=== PATIENT | male | born 1955 | race Caucasian/White ===

== ENCOUNTER 2020-08-03 11:33 | Emergency (ER) | payer MEDICARE, OTHER ==
[~2020-08-03] VITALS: Ht 177.8 cm; Wt 51.0 kg
[2020-08-03 12:17] VITALS: BP 152/99
--- NOTE | 2020-08-03 12:37 | RAD ---
XR CHEST 1V History: Reason: SYNCOPE / Spl. Instructions: / History: Comparison: None. Findings: Hyperinflation with emphysematous changes. Postop changes right upper lung. No pleural effusion. No p neumothorax. Asymmetric right apical pleural thickening. Impression: 1. Hyperinflation with emphysematous changes. Electronically signed by: Corby Cordon DO (08/03/2020 12:35 PM) [id number]
--- NOTE | 2020-08-03 12:49 | RAD ---
Exam performed: CT scan of the head and cervical spine without contrast. Date of Service: 08/03/2020 Comparison:None available Clinical History: Patient fell this morning and hit forehead on the door knob, complaining of headach e and neck pain Technique: Helical acquisitions are obtained from the foramen magnum to the vertex without intravenou s administration of contrast. In addition helical acquisitions are obtained through the cervical spin e. Sagittal and coronal reformatted images are obtained and reviewed. CT scan head findings: The ventricular system is midline without evidence of dilatation. Normal ornelas-white differentiation is maintained. Mild generalized areas of low-attenuation are seen, predominantly in the right pariet o-occipital region. There is no extra axial fluid collection, intraparenchymal hemorrhage or mass les ion. The visualized orbits, paranasal sinuses and the mastoid air cells are clear. The calvarium is intact. Impression: 1. No acute intracranial process detected. 2. Areas of low-attenuation in both periventricular deep white matter predominantly in the right carmella eto-occipital region may represent small vessel ischemic changes. If indicated evaluation with MRI of the brain may be obtained to rule out possibility of a cerebrovascular accident. End Impression. CT cervical spine findings: There is minimal grade 1 retrolisthesis of C3 over C4 and grade 1 anterolisthesis of C4 over C5, the remainder sagittal alignment is preserved. Cranio cervical and C1-2 articulation is preserved. The ve rtebral body heights are maintained. There is narrowing of C3/4, C5/6 and C6/7 disc spaces, the remai nder intravertebral disc spaces are maintained. Multilevel bilateral apophyseal joint hypertrophic ch anges are seen. There are no fractures. No prevertebral soft tissue swelling is identified. No def inite lymphadenopathy or masses are seen within the neck. The visualized thyroid and salivary glands appears preserved. Impression: 1. Spondylotic changes and mild disc degenerative changes are noted. 2. No acute abnormality seen in the CT scan cervical spine. PQRS Compliance Statement: One or more of the following individualized dose reduction techniques were utilized for this examinat ion: 1. Automated exposure control 2. Adjustment of the mA and/or kV according to patient size 3. Use of iterative reconstruction technique Electronically signed by: Patricia Costa MD (08/03/2020 12:46 PM) [facility] CAMPUSAdriana
[2020-08-03 13:46] LABS: BASO # 0.1 x10^3/uL (0.0-0.2); BASO % 1 % (0-3); EOS # 0.1 x10^3/uL (0.0-0.7); EOS % 1 % (0-3); HEMATOCRIT 36.1 % (39.0-53.0); LYMPH # 2.4 x10^3/uL (1.0-4.8); LYMPH % 24 % (24-48); MEAN CORPUSCULAR HEMOGLOBIN 27 pg (25-35); MEAN CORPUSCULAR HGB CONC 33 g/dL (31-37); MEAN CORPUSCULAR VOLUME 80 fL (79-100); MONO # 0.6 x10^3/uL (0.0-1.1); MONO % 6 % (0-9); NEUT # 6.6 x10^3/uL (1.8-7.7); NEUT % 68 % (31-73); PLATELET COUNT 335 x10^3/uL (140-400); RED BLOOD COUNT 4.48 x10^6/uL (4.30-5.70); RED CELL DISTRIBUTION WIDTH 16.2 % (11.5-14.5); WHITE BLOOD COUNT 9.8 x10^3/uL (4.0-11.0)
[2020-08-03 13:47] LABS: CALCIUM 9.3 mg/dL (8.5-10.1); CREATININE 1.1 mg/dL (0.7-1.3); GFR 67.2; POTASSIUM 4.4 mmol/L (3.5-5.1)
[2020-08-03 13:52] LABS: ALBUMIN 2.7 g/dL (3.4-5.0); ALBUMIN/GLOBULIN RATIO 0.6 (1.0-1.7); MAGNESIUM 2.1 mg/dL (1.8-2.4); TOTAL BILIRUBIN 0.3 mg/dL (0.2-1.0); TOTAL PROTEIN 7.6 g/dL (6.4-8.2)
[2020-08-03 14:24] LABS: BILIRUBIN,URINE NEGATIVE (NEG); CLARITY,URINE CLEAR; COLOR,URINE YELLOW; NITRITE,URINE NEGATIVE (NEG); PH,URINE 5.5 (<5.0-8.0); PROTEIN,URINE NEGATIVE (NEG-TRACE); UROBILINOGEN,URINE 0.2 mg/dL (0.2 mg/dL)
[2020-08-03 14:35] LABS: BACTERIA,URINE 0 /HPF (0-FEW); RBC,URINE 0 /HPF (0-2); WBC,URINE 0 /HPF (0-4)
--- NOTE | 2020-08-03 15:10 | PHYS DOC ---
Past Medical History Past Medical History: COPD, Hypertension Past Surgical History: Other Additional Past Surgical Histo: RIGHT UPPER LOBE LUNG REMOVAL 11/26 Smoking Status: Current Every Day Smoker Alcohol Use: None General Adult EDM: Chief Complaint: NEURO SYMPTOMS/DEFICITS HPI: HPI: Patient is a 64-year-old male who presented to ER for evaluation of right upper extremity numbness and tingling sensation for 2 weeks. Patient got up this morning, tripped and fell hit his forehead against a doorknob, loss of consciousness. Patient said he had not been feeling well since . Patient denies any chest pain, no abdominal pain, no nausea or vomiting. Patient denies any trouble breathing. Patient has a history of hypertension, COPD. His daughter said he had not been taking his blood pressure medication for a week. Patient has his medication with him but somehow he did forget to take them. Review of Systems: Review of Systems: Constitutional: Denies fever or chills. [] Eyes: Denies change in visual acuity. [] HENT: Denies nasal congestion or sore throat. [] Respiratory: Denies cough or shortness of breath. [] Cardiovascular: Denies chest pain or edema. [] GI: Denies abdominal pain, nausea, vomiting, bloody stools or diarrhea. [] : Denies dysuria. [] Musculoskeletal: Denies back pain or joint pain. [] Integument: Denies rash. [] Neurologic: Positive for headache, focal weakness or sensory changes. [] Positive for some numbness and tingling sensation on the right upper extremity Endocrine: Denies polyuria or polydipsia. [] Lymphatic: Denies swollen glands. [] Psychiatric: Denies depression or anxiety. [] Heart Score: Risk Factors: Risk Factors: DM, Current or recent (<one month) smoker, HTN, HLP, family history of CAD, obesity. Risk Scores: Score 0 - 3: 2.5% MACE over next 6 weeks - Discharge Home Score 4 - 6: 20.3% MACE over next 6 weeks - Admit for Clinical Observation Score 7 - 10: 72.7% MACE over next 6 weeks - Early Invasive Strategies Physical Exam: PE: Constitutional: Well developed, well nourished, no acute distress, non-toxic appearance. [] HENT: Normocephalic, atraumatic, bilateral external ears normal, oropharynx moist, no oral exudates, nose normal. [] Eyes: PERRLA, EOMI, conjunctiva normal, no discharge. [] Neck: Normal range of motion, no tenderness, supple, no stridor. [] Cardiovascular:Heart rate regular rhythm, no murmur [] Lungs & Thorax: Bilateral breath sounds clear to auscultation [] Abdomen: Bowel sounds normal, soft, no tenderness, no masses, no pulsatile mass es. [] Skin: Warm, dry, no erythema, no rash. [] Back: No tenderness, no CVA tenderness. [] Extremities: No tenderness, no cyanosis, no clubbing, ROM intact, no edema. [] Neurologic: Alert and oriented X 3, normal motor function, normal sensory function, no focal deficits noted. [] Psychologic: Affect normal, judgement normal, mood normal. [] Current Patient Data: Labs: Laboratory Tests Test 08/03/20 13:19 08/03/20 14:15 White Blood Count 9.8 x10^3/uL (4.0-11.0) Red Blood Count 4.48 x10^6/uL (4.30-5.70) Hemoglobin 12.0 g/dL (13.0-17.5) L Hematocrit 36.1 % (39.0-53.0) L Mean Corpuscular Volume 80 fL (79-100) Mean Corpuscular Hemoglobin 27 pg (25-35) Mean Corpuscular Hemoglobin Concent 33 g/dL (31-37) Red Cell Distribution Width 16.2 % (11.5-14.5) H Platelet Count 335 x10^3/uL (140-400) Neutrophils (%) (Auto) 68 % (31-73) Lymphocytes (%) (Auto) 24 % (24-48) Monocytes (%) (Auto) 6 % (0-9) Eosinophils (%) (Auto) 1 % (0-3) Basophils (%) (Auto) 1 % (0-3) Neutrophils # (Auto) 6.6 x10^3/uL (1.8-7.7) Lymphocytes # (Auto) 2.4 x10^3/uL (1.0-4.8) Monocytes # (Auto) 0.6 x10^3/uL (0.0-1.1) Eosinophils # (Auto) 0.1 x10^3/uL (0.0-0.7) Basophils # (Auto) 0.1 x10^3/uL (0.0-0.2) Sodium Level 134 mmol/L (136-145) L Potassium Level 4.4 mmol/L (3.5-5.1) Chloride Level 100 mmol/L (98-107) Carbon Dioxide Level 23 mmol/L (21-32) Anion Gap 11 (6-14) Blood Urea Nitrogen 14 mg/dL (8-26) Creatinine 1.1 mg/dL (0.7-1.3) Estimated GFR (Cockcroft-Gault) 67.2 BUN/Creatinine Ratio 13 (6-20) Glucose Level 86 mg/dL (70-99) Calcium Level 9.3 mg/dL (8.5-10.1) Magnesium Level 2.1 mg/dL (1.8-2.4) Total Bilirubin 0.3 mg/dL (0.2-1.0) Aspartate Amino Transferase (AST) 11 U/L (15-37) L Alanine Aminotransferase (ALT) 12 U/L (16-63) L Alkaline Phosphatase 99 U/L (46-116) Troponin I Quantitative < 0.017 ng/mL (0.000-0.055) LG-Ndo-A-Type Natriuretic Peptide 855 pg/mL (0-124) H Total Protein 7.6 g/dL (6.4-8.2) Albumin 2.7 g/dL (3.4-5.0) L Albumin/Globulin Ratio 0.6 (1.0-1.7) L Urine Collection Type Unknown Urine Color Yellow Urine Clarity Clear Urine pH 5.5 (<5.0-8.0) Urine Specific Starks 1.010 (1.000-1.030) Urine Protein Negative mg/dL (NEG-TRACE) Urine Glucose (UA) Negative mg/dL (NEG) Urine Ketones (Stick) Negative mg/dL (NEG) Urine Blood Negative (NEG) Urine Nitrite Negative (NEG) Urine Bilirubin Negative (NEG) Urine Urobilinogen Dipstick 0.2 mg/dL (0.2 mg/dL) Urine Leukocyte Esterase Negative (NEG) Urine RBC 0 /HPF (0-2) Urine WBC 0 /HPF (0-4) Urine Squamous Epithelial Cells Few /LPF Urine Bacteria 0 /HPF (0-FEW) Laboratory Tests 08/03/20 13:19 Laboratory Tests 08/03/20 13:19 Vital Signs: Vital Signs Date Time Temp Pulse Resp B/P (MAP) Pulse Ox O2 Delivery O2 Flow Rate FiO2 08/03/20 12:17 98.7 104 18 152/99 (116) 98 Room Air 98.7 EKG: EKG: EKG was done at 1259, heart rate of 79 bpm, normal sinus rhythm, no ST segment ovation Radiology/Procedures: Radiology/Procedures: [facility] [address] [place] [address] IMAGING REPORT Signed PATIENT: TONI YORK ACCOUNT: [id number] : 1955 LOCATION: ER AGE: 64 SEX: M EXAM STATUS: REG ER ORD. PHYSICIAN: SEE BUNCH DO REASON: FELL THIS MORNING, HIT FOREHEAD ON DOOR KNOB, HEADACHE, NECK PAIN PROCEDURE: CT HEAD AND CERVICAL SPINE WO Exam performed: CT scan of the head and cervical spine without contrast. Date of Service: 08/03/2020 Comparison:None available Clinical History: Patient fell this morning and hit forehead on the door knob, complaining of headache and neck pain Technique: Helical acquisitions are obtained from the foramen magnum to the vertex without intravenous administration of contrast. In addition helical acquisitions are obtained through the cervical spine. Sagittal and coronal reformatted images are obtained and reviewed. CT scan head findings: The ventricular system is midline without evidence of dilatation. Normal ornelas- white differentiation is maintained. Mild generalized areas of low-attenuation are seen, predominantly in the right parieto-occipital region. There is no extra axial fluid collection, intraparenchymal hemorrhage or mass lesion. The visualized orbits, paranasal sinuses and the mastoid air cells are clear. The calvarium is intact. Impression: 1. No acute intracranial process detected. 2. Areas of low-attenuation in both periventricular deep white matter predominantly in the right parieto-occipital region may represent small vessel ischemic changes. If indicated evaluation with MRI of the brain may be obtained to rule out possibility of a cerebrovascular accident. End Impression. CT cervical spine findings: There is minimal grade 1 retrolisthesis of C3 over C4 and grade 1 anterolisthesis of C4 over C5, the remainder sagittal alignment is preserved. Cranio cervical and C1-2 articulation is preserved. The vertebral body heights are maintained. There is narrowing of C3/4, C5/6 and C6/7 disc spaces, the remainder intravertebral disc spaces are maintained. Multilevel bilateral apophyseal joint hypertrophic changes are seen. There are no fractures. No prevertebral soft tissue swelling is identified. No definite lymphadenopathy or masses are seen within the neck. The visualized thyroid and salivary glands appears preserved. Impression: 1. Spondylotic changes and mild disc degenerative changes are noted. 2. No acute abnormality seen in the CT scan cervical spine. PQRS Compliance Statement: One or more of the following individualized dose reduction techniques were utilized for this examination: 1. Automated exposure control 2. Adjustment of the mA and/or kV according to patient size 3. Use of iterative reconstruction technique Electronically signed by: Patricia Costa MD (08/03/2020 12:46 PM) [facility] DICTATED and SIGNED BY: PATRICIA COSTA MD DATE: 08/03/20 [id number] [facility] [address] [place] [address] IMAGING REPORT Signed PATIENT: TONI YORK ACCOUNT: [id number] : 1955 LOCATION: ER AGE: 64 SEX: M EXAM STATUS: REG ER ORD. PHYSICIAN: SEE BUNCH DO REASON: SYNCOPE PROCEDURE: PORTABLE CHEST 1V XR CHEST 1V History: Reason: SYNCOPE / Spl. Instructions: / History: Comparison: None. Findings: Hyperinflation with emphysematous changes. Postop changes right upper lung. No pleural effusion. No pneumothorax. Asymmetric right apical pleural thickening. Impression: 1. Hyperinflation with emphysematous changes. Electronically signed by: Corby Cordon DO (08/03/2020 12:35 PM) [id number] DICTATED and SIGNED BY: CORBY CORDON DO DATE: 08/03/20 [id number] Course & Med Decision Making: Course & Med Decision Making Pertinent Labs and Imaging studies reviewed. (See chart for details) Patient is a 64-year-old male who presented to ER for evaluation of right upper extremity numbness and tingling sensation for 2 weeks. Patient got up this morning, tripped and fell hit his forehead against a doorknob, loss of consciousness. Patient said he had not been feeling well since . Patient denies any chest pain, no abdominal pain, no nausea or vomiting. Patient denies any trouble breathing. Patient has a history of hypertension, COPD. His daughter said he had not been taking his blood pressure medication for a week. Patient has his medication with him but somehow he did forget to take them.. Work-up in the ER include EKG, routine lab work, CT scan of the head and C-spine did not show any acute problem. Patient states sustained a concussion from the fall this morning. The right upper extremity numbness and tingling sensation is probably due to cervical radiculopathy. Patient will need to follow-up with his family physician for outpatient evaluation with MRI of the cervical spine. Patient daughter is here with him, she will make sure that he was taking medication and follow-up with Next week. Jackie Disclaimer: Jackie Disclaimer: This electronic medical record was generated, in whole or in part, using a voice recognition dictation system. Departure Departure Impression: Primary Impression: Concussion Additional Impression: Cervical radiculopathy Disposition: 01 DC HOME SELF CARE/HOMELESS Condition: STABLE Referrals: NO PCP (PCP) Please follow up with your doctor next week for reevaluation. Patient Instructions: Cervical Radiculopathy, Concussion and Brain Injury Additional Instructions: Thank you for visiting our Emergency Department. We appreciate you trusting us with your care. If any additional problems come up don't hesitate to return to visit us. Please follow up with your primary care provider so they can plan additional care if needed and know about the problem that you had. If symptoms worsen come back to the Emergency Department. Any concerning symptoms that start such as chest pain, shortness of air, weakness or numbness on one side of the b vinny, running high fevers or any other concerning symptoms return to the ER. SEE BUNCH DO Aug 03, 2020 15:10
--- NOTE | 2020-08-04 07:39 | EKG ---
[facility] [address] [place] [address] Test Date: 2020-08-03 Test Time: 12:59:57 Pat Name: TONI YORK Department: Room: Gender: M City Route Driver: : 1955 Requested By: SEE BUNCH Order Number: [id number] Reading MD: Measurements Intervals [place] Rate: 79 P: 48 [place]: 132 QRS: 25 QRSD: 84 T: 34 QT: 362 QTc: 416 Interpretive Statements SINUS RHYTHM NORMAL ECG RI6.02 No previous ECG available for comparison
== END 2020-08-03 16:24 | disposition home or self-care (01) ==
LOC: ER 11:33
DX: S06.0X0A Concussion without loss of consciousness, initial encounter (principal); M54.12 Radiculopathy, cervical region; R20.2 Paresthesia of skin; R55 Syncope and collapse; J44.9 Chronic obstructive pulmonary disease, unspecified; I10 Essential (primary) hypertension; F17.200 Nicotine dependence, unspecified, uncomplicated; Z98.890 Other specified postprocedural states; W18.09XA Striking against other object with subsequent fall, initial encounter; Y93.89 Activity, other specified; Y92.89 Other specified places as the place of occurrence of the external cause; Y99.8 Other external cause status
CPT/HCPCS: 36415; 70450; 71045; 72125; 80053; 81001; 83735; 83880; 84484; 85025; 93005; 99285